=== PATIENT | female | born 1995 | race American Indian/Alaskan Native ===

== ENCOUNTER 2017-12-02 08:51 | Emergency (ER) | payer OTHER, MEDICAID ==
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
[2017-12-02] MEDS ORDERED: TYLENOL #3 PO ONE (12:04)
[2017-12-02 12:22] VITALS: BP 110/57
== END 2017-12-02 12:57 | disposition home or self-care (01) ==
LOC: ED 08:51
DX: O9A.212 Injury, poisoning and certain other consequences of external causes complicating pregnancy, second trimester (principal); R10.30 Lower abdominal pain, unspecified; R51 Headache; J45.909 Unspecified asthma, uncomplicated; Z3A.27 27 weeks gestation of pregnancy

== ENCOUNTER 2017-12-02 13:23 | Outpatient (CLI) | payer OTHER, MEDICAID ==
[2017-12-02] MEDS ORDERED: LACTATED RINGERS 1,000 ML IV ONE (19:08)
[2017-12-02] MEDS ORDERED: TYLENOL PO ONE (19:08)
[2017-12-02] MEDS ORDERED: LACTATED RINGERS 1,000 ML ONE (19:20)
[2017-12-02 21:03] VITALS: BP 115/67
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
== END 2017-12-02 21:22 | disposition home or self-care (01) ==
LOC: TRG 13:23 → LD 13:28 → TRG 21:22
PROVIDERS: ATTEND Obstetrics & Gynecology
DX: O47.02 False labor before 37 completed weeks of gestation, second trimester (principal); Z3A.26 26 weeks gestation of pregnancy; Z88.0 Allergy status to penicillin
CPT/HCPCS: 59025; 76805; 76810; 76819; 96360; J7120